=== PATIENT | male | born 1980 | race African-American/Black ===

== ENCOUNTER 2017-01-11 05:40 | Emergency (ER) | payer SELFPAY ==
[~2017-01-11] VITALS: Ht 170.2 cm; Wt 103.0 kg
[2017-01-11 08:27] VITALS: BP 128/63
== END 2017-01-11 08:31 | disposition home or self-care (01) ==
LOC: ER 05:40
DX: R00.2 Palpitations (principal); F12.10 Cannabis abuse, uncomplicated
CPT/HCPCS: 99283

== ENCOUNTER 2017-02-18 06:16 | Emergency (ER) | payer SELFPAY ==
[~2017-02-18] VITALS: Ht 188 cm; Wt 100.0 kg
[2017-02-18 07:34] LABS: BASOPHILS % 0.8 % (0.0-2.0); EOSINOPHILS % 0.1 % (0.0-5.0); HEMATOCRIT. 41.1 % (42.0-52.0); HEMOGLOBIN. 13.8 g/dL (14.0-18.0); LYMPHOCYTES % 16.8 % (20.0-50.0); MEAN CORPUSCULAR HEMOGLOBIN 28.9 pg (28.0-32.0); MEAN CORPUSCULAR VOLUME 86.2 fL (80.0-94.0); MEAN PLATELET VOLUME 8.4 fl (7.4-10.4); MONOCYTES % 8.9 % (2.0-8.0); NEUTROPHILS % 73.4 % (40.0-76.0); PLATELET 363 x1000/uL (130-400); RED BLOOD CELL COUNT 4.77 mill/uL (4.7-6.1); RED CELL DISTRIBUTION WIDTH 13.7 % (11.6-14.6)
[2017-02-18 07:53] LABS: CARBON DIOXIDE 23 mEq/L (21-32); CHLORIDE 98 mEq/L (98-107); ETHANOL BLOOD < 10 mg/dL
[2017-02-18 10:21] LABS: CLARITY URINE CLEAR (CLEAR); COLOR URINE YELLOW (YELLOW); KETONES URINE 3+ (NEGATIVE); LEUKOCYTE ESTERASE URINE 2+ (NEGATIVE); NITRITE URINE NEGATIVE (NEGATIVE); OCCULT BLOOD URINE 1+ (NEGATIVE); PROTEIN URINE 3+ (NEGATIVE); SPECIFIC GRAVITY URINE 1.016 (1.005-1.030)
[2017-02-18 10:59] LABS: *AMPHETAMINES SCREEN URINE PRESUMTIVE POSITIVE (NEGATIVE); *BARBITURATES SCREEN URINE NEGATIVE (NEGATIVE); *BENZODIAZEPINES SCREEN URINE NEGATIVE (NEGATIVE); *COCAINE SCREEN URINE NEGATIVE (NEGATIVE); CANNABINOID URINE SCREEN NEGATIVE (NEGATIVE); METHADONE URINE SCREEN NEGATIVE (NEGATIVE); OPIATES URINE SCREEN NEGATIVE (NEGATIVE); PHENCYCLIDINE URINE SCREEN NEGATIVE (NEGATIVE)
[2017-02-18 11:19] VITALS: BP 126/82
== END 2017-02-18 11:41 | disposition home or self-care (01) ==
LOC: ER 06:52
DX: F15.10 Other stimulant abuse, uncomplicated (principal); N39.0 Urinary tract infection, site not specified; F12.10 Cannabis abuse, uncomplicated
CPT/HCPCS: 36415; 80053; 80305; 80307; 80329; 81001; 85025; 99284; G0482; Z7610

== ENCOUNTER 2017-03-07 05:06 | Emergency (ER) | payer SELFPAY ==
[~2017-03-07] VITALS: Ht 172.7 cm; Wt 104.0 kg
[2017-03-07 06:19] VITALS: BP 145/93
== END 2017-03-07 09:32 | disposition left against medical advice (07) ==
LOC: ER 05:06
DX: Z53.21 Procedure and treatment not carried out due to patient leaving prior to being seen by health care provider (principal)

== ENCOUNTER 2017-05-26 00:24 | Emergency (ER) | payer SELFPAY ==
[~2017-05-26] VITALS: Ht 167.6 cm; Wt 87.0 kg
[2017-05-26 01:24] VITALS: BP 118/78
== END 2017-05-26 03:39 | disposition home or self-care (01) ==
LOC: ER 00:24
DX: F15.10 Other stimulant abuse, uncomplicated (principal); R00.0 Tachycardia, unspecified; R06.02 Shortness of breath; R53.1 Weakness; R20.0 Anesthesia of skin; R61 Generalized hyperhidrosis; R10.9 Unspecified abdominal pain; R07.9 Chest pain, unspecified
CPT/HCPCS: 93005; 99283

== ENCOUNTER 2018-01-14 15:56 | Emergency (ER) | payer MEDICAID ==
[~2018-01-14] VITALS: Ht 182.9 cm; Wt 98.0 kg
[2018-01-14 15:58] VITALS: BP 113/80
== END 2018-01-14 22:01 | disposition left against medical advice (07) ==
LOC: ER 16:28
DX: Z53.21 Procedure and treatment not carried out due to patient leaving prior to being seen by health care provider (principal)

== ENCOUNTER 2019-02-13 14:58 | Emergency (ER) | payer MEDICAID ==
[~2019-02-13] VITALS: Ht 177.8 cm; Wt 78.0 kg
[2019-02-13] MEDS ORDERED: LORAZEPAM 2MG/ML CPJ IM STA (15:22)
[2019-02-13] MEDS ORDERED: DIPHENHYDRAMINE 50MG/ML VIAL IM STA (15:22)
[2019-02-13] MEDS ORDERED: SODIUM CHLORIDE 0.9% 1,000 ML IV ONE (15:22)
[2019-02-13] MEDS ORDERED: ONDANSETRON HCL 4MG/2ML INJ IV STA (15:22)
[2019-02-13] MEDS ORDERED: HALOPERIDOL LACTATE 5MG/ML VIAL IM ONE (15:30)
[2019-02-13 16:53] LABS: BASOPHILS % 0.5 % (0.0-2.0); CHLORIDE 105 mEq/L (98-107); EOSINOPHILS % 0.5 % (0.0-5.0); HEMATOCRIT. 33.2 % (42.0-52.0); LYMPHOCYTES % 37.6 % (20.0-50.0); MEAN CORPUSCULAR HEMOGLOBIN 29.1 pg (28.0-32.0); MEAN CORPUSCULAR VOLUME 87.5 fL (80.0-94.0); MEAN PLATELET VOLUME 7.4 fl (7.4-10.4); MONOCYTES % 8.3 % (2.0-8.0); NEUTROPHILS % 53.1 % (40.0-76.0); PLATELET 362 x1000/uL (130-400); RED BLOOD CELL COUNT 3.79 mill/uL (4.7-6.1); RED CELL DISTRIBUTION WIDTH 15.7 % (11.6-14.6)
[2019-02-13 16:58] LABS: ETHANOL BLOOD < 10 mg/dL
[2019-02-13 17:04] LABS: CLARITY URINE CLEAR (CLEAR); COLOR URINE YELLOW (YELLOW); KETONES URINE NEGATIVE (NEGATIVE); LEUKOCYTE ESTERASE URINE NEGATIVE (NEGATIVE); NITRITE URINE NEGATIVE (NEGATIVE); OCCULT BLOOD URINE NEGATIVE (NEGATIVE); PROTEIN URINE NEGATIVE (NEGATIVE); SPECIFIC GRAVITY URINE 1.006 (1.005-1.030); UROBILINOGEN URINE 0.2 E.U./dL (0.2-1.0)
[2019-02-13 17:22] LABS: *AMPHETAMINES SCREEN URINE PRESUMTIVE POSITIVE (NEGATIVE); *BARBITURATES SCREEN URINE NEGATIVE (NEGATIVE); *BENZODIAZEPINES SCREEN URINE NEGATIVE (NEGATIVE); *COCAINE SCREEN URINE NEGATIVE (NEGATIVE); METHADONE URINE SCREEN NEGATIVE (NEGATIVE); OPIATES URINE SCREEN NEGATIVE (NEGATIVE)
[2019-02-13 17:23] LABS: CANNABINOID URINE SCREEN NEGATIVE (NEGATIVE); PHENCYCLIDINE URINE SCREEN NEGATIVE (NEGATIVE)
[2019-02-15 10:40] VITALS: BP 118/67
== END 2019-02-15 10:40 | disposition home or self-care (01) ==
LOC: ER 15:06
DX: R45.1 Restlessness and agitation (principal); F15.229 Other stimulant dependence with intoxication, unspecified; I49.9 Cardiac arrhythmia, unspecified; F29 Unspecified psychosis not due to a substance or known physiological condition
CPT/HCPCS: 36415; 71045; 80053; 80305; 80320; 81003; 83880; 84484; 85025; 93005; 96372; 96374; 99284; J1200; J1630; J2060; J2405; J7030; G0480

== ENCOUNTER 2019-04-14 09:44 | Emergency (ER) | payer MEDICAID, OTHER ==
[~2019-04-14] VITALS: Ht 172.7 cm; Wt 83.0 kg
[2019-04-14 09:54] VITALS: BP 133/76
[2019-04-14] MEDS ORDERED: LORAZEPAM 1MG TABLET PO ONE (10:30)
== END 2019-04-14 11:17 | disposition home or self-care (01) ==
LOC: ER 10:43
DX: F15.10 Other stimulant abuse, uncomplicated (principal); F41.9 Anxiety disorder, unspecified
CPT/HCPCS: 93005; 99283

== ENCOUNTER 2019-04-20 05:42 | Emergency (ER) | payer OTHER ==
[~2019-04-20] VITALS: Ht 177.8 cm; Wt 75.0 kg
[2019-04-20 05:53] VITALS: BP 130/87
[2019-04-20] MEDS ORDERED: LORAZEPAM 0.5MG TABLET PO ONE (06:30)
[2019-04-20 06:43] LABS: EOSINOPHILS % 0.6 % (0.0-5.0); HEMATOCRIT. 39.4 % (42.0-52.0); HEMOGLOBIN. 13.6 g/dL (14.0-18.0); MEAN CORPUSCULAR HEMOGLOBIN 30.2 pg (28.0-32.0); MEAN CORPUSCULAR VOLUME 87.8 fL (80.0-94.0); MEAN PLATELET VOLUME 6.8 fl (7.4-10.4); MONOCYTES % 8.6 % (2.0-8.0); NEUTROPHILS % 44.8 % (40.0-76.0); PLATELET 371 x1000/uL (130-400); RED BLOOD CELL COUNT 4.49 mill/uL (4.7-6.1)
[2019-04-20 06:50] LABS: CHLORIDE 101 mEq/L (98-107)
[2019-04-20 06:56] LABS: ETHANOL BLOOD < 10 mg/dL
[2019-04-20 07:14] LABS: CREATINE KINASE 1792 IU/L (39-308)
[2019-04-20] MEDS ORDERED: SODIUM CHLORIDE 0.9% 2,000 ML IV ONE (07:25)
== END 2019-04-20 07:49 | disposition left against medical advice (07) ==
LOC: ER 05:42
DX: R07.89 Other chest pain (principal); F15.10 Other stimulant abuse, uncomplicated; M62.82 Rhabdomyolysis
CPT/HCPCS: 36415; 71045; 80053; 80320; 82550; 83690; 83880; 84484; 85025; 93005; 99285; J7030; G0480

== ENCOUNTER 2019-07-08 09:11 | Emergency (ER) | payer OTHER ==
[~2019-07-08] VITALS: Ht 180.3 cm; Wt 92.0 kg
[2019-07-08 09:12] VITALS: BP 144/92
[2019-07-08] MEDS ORDERED: ACETAMINOPHEN 500MG TABLET PO SCH (09:30)
== END 2019-07-08 10:53 | disposition home or self-care (01) ==
LOC: ER 09:23
DX: M25.512 Pain in left shoulder (principal); D17.9 Benign lipomatous neoplasm, unspecified; F15.10 Other stimulant abuse, uncomplicated
CPT/HCPCS: 73030; 99283

== ENCOUNTER 2022-07-07 19:08 | Emergency (ER) | payer OTHER ==
[~2022-07-07] VITALS: Ht 172.7 cm; Wt 90.0 kg
[2022-07-07] MEDS ORDERED: TETANUS, DIPHTHERIA, PERTUSSIS VAC/PF 0.5ML (>10YR OLD) IM ONE (19:45)
[2022-07-07 21:50] VITALS: BP 107/62
== END 2022-07-07 22:00 ==
LOC: ER 19:08
DX: S01.01XA Laceration without foreign body of scalp, initial encounter (principal); F41.9 Anxiety disorder, unspecified; F19.90 Other psychoactive substance use, unspecified, uncomplicated; Y35.811A Legal intervention involving manhandling, law enforcement official injured, initial encounter; Y93.89 Activity, other specified; Y92.89 Other specified places as the place of occurrence of the external cause; Y99.8 Other external cause status
CPT/HCPCS: 90471; 90715; 99283; Z7610